=== PATIENT | male | born 1985 | race Caucasian/White ===

== ENCOUNTER 2020-06-15 12:52 | Emergency (ER) | payer OTHER, SELFPAY ==
[2020-06-15 12:58] VITALS: BP 158/107; PULSE 78; RESP 16; TEMP 36.3; O2SAT 100; BMI 27.1
--- NOTE | 2020-06-15 13:13 | XRR_ITS ---
PROCEDURE INFORMATION: Exam: XR Chest, 1 View Exam date and time: 06/15/2020 1:42 PM Age: 34 years old Clinical indication: Patient HX: C/O shortness of breath and chest pain today; Additional info: Cp TECHNIQUE: Imaging protocol: XR of the chest Views: 1 view. COMPARISON: CR Chest 1 view [id number] 08/16/2015 6:41 AM FINDINGS: Lungs: Unremarkable. No consolidation. Pleural space: Unremarkable. No pleural effusion. No pneumothorax. Heart/Mediastinum: Unremarkable. No cardiomegaly. Bones/joints: Unremarkable. XR/XR chest 1V portable [id number] IMPRESSION: No acute findings.
--- NOTE | 2020-06-15 13:15 | ECG_ITS ---
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 Measurements Intervals [place] Rate: 66 P: 60 UT: 205 QRS: 87 QRSD: 105 T: 52 QT: 386 QTc: 405 Interpretive Statements SINUS RHYTHM INTERPRETATION BASED ON A DEFAULT AGE OF 40 YEARS Compared to ECG 08/16/2015 12:16:11 Sinus bradycardia no longer present Electronically Signed On 06-16-2020 15:59:53 CDT by Jad Mcelroy M.D. [id number]
[2020-06-15] MEDS: aspirin 325 mg Tablet PO (13:32)
[2020-06-15] MEDS: ondansetron 2 mg/ML SDV 2 mL 4 MG IVP (13:32)
[2020-06-15] MEDS: sodium chloride 0.9% 1,000 ML 100 ML IV (13:33)
[2020-06-15 13:38] LABS: Basophils % 0.5 %; Eosinophils # 0.2 10^3/uL (0.0-0.8); Eosinophils % 3.5 %; Hematocrit 43.4 % (42.0-52.0); Lymphocytes # 2.6 10^3/uL (0.8-4.8); Lymphocytes % 41.1 %; Mean Corpuscular HGB Conc 34.6 g/dL (30.0-36.0); Mean Corpuscular Hemoglobin 31.7 pg (28.0-34.0); Mean Corpuscular Volume 91.8 fL (80-94); Mean Platelet Volume 11.9 fL (7.4-10.4); Monocytes # 0.6 10^3/uL (0.2-0.9); Neutrophils # 2.84 10^3/uL (1.8-7.7); Neutrophils % 45.7 %; Nucleated Red Blood Cells % 0 %; Platelet Count 211 10^3/cmm (130-400); Red Blood Count 4.73 10^6/uL (4.1-5.3); Red Cell Distribution Width 12.7 % (12.1-15.1); White Blood Count 6.2 10^3/uL (4.0-10.0)
[2020-06-15] MEDS: nitroglycerin 0.4 mg sublingual Tablet SUBLINGUAL ×3 (13:41→13:51)
[2020-06-15 13:45] VITALS: BP 130/84; PULSE 70; RESP 12; O2SAT 97
--- NOTE | 2020-06-15 13:52 | PC.NURSE ---
AFTER ADM 3 NITRO PT REPORTS THAT HIS PAIN DECREASED FROM A 6 TO A 0.
[2020-06-15 13:53] LABS: INR 0.86 (0.8-1.2)
[2020-06-15 13:58] LABS: Troponin(5th) Baseline 6 ng/L (0-15)
[2020-06-15 14:08] LABS: Alanine Aminotransferase 26 U/L (0-41); Albumin Level 4.7 g/dL (3.5-5.2); Alkaline Phosphatase 51 IU/L (40-130); Aspartate Amino Transferase 26 U/L (0-40); Blood Urea Nitrogen 13 mg/dL (6-20); Calcium 9.7 mg/dL (8.5-10.5); Carbon Dioxide 20 mmol/L (22-29); Chloride 108 mmol/L (98-107); Globulin 2.3 g/dL (1.3-4.6); Glomerular Filtration Rate 109.4 mL/min (90-130); Glucose 96 mg/dL (65-115); Lipase 25 U/L (13-60); NT Pro B Type Natriuretic Pept 58 pg/mL (0-125); Osmolality Calculated 288 mOsm/kg (285-295); Sodium 141 mmol/L (136-145); Total Bilirubin 0.4 mg/dL (0.15-1.2)
[2020-06-15] MEDS: nitroglycerin 1 gm/inch oint Pkt 1 INCH TOPICAL (14:09)
[2020-06-15 14:11] LABS: Anion Gap 16.9 (5-19); Potassium 3.9 mmol/L (3.5-5.1)
--- NOTE | 2020-06-15 14:22 | W.ED.CHESTPA ---
HPI - Chest Pain General: Chief Complaint: Chest Pain Stated Complaint: CP Time Seen by Provider: 06/15/20 13:12 Source: patient Mode of arrival: ambulatory Limitations: no limitations History of Present Illness: HPI narrative: Jakob is a nice 34-year-old male who comes in complaining of chest pain. He describes the pain as initially in his right arm that spread to his chest and then down his left arm. He describes it as a pressure sensation that also radiated up into his neck. He had shortness of breath and diaphoresis associated with this. He had nausea but no vomiting. The pain is been going on for about an hour and a half. Patient is concerned because he has a family history of early onset heart disease. He states he had a heart cath in 2015 that showed cardiac disease but nothing amenable to stenting. The patient states that his symptoms gets worse when he exerts himself but otherwise he denies any other complaints or concerns. Patient states he was working at the time of onset with with mild physical activity. Associated symptoms: Reports diaphoresis, dyspnea and nausea; Deny abdominal pain, fever(s), palpitations, syncope or vomiting Review of Systems Const: Reports: diaphoresis; Denies: fever(s), chills, body aches, fatigue or malaise Eyes: Denies: change in vision, blurry vision, blind spots, photophobia, eye discharge or eye redness ENMT: Denies: throat pain, odynophagia, hoarseness, swelling of lips/tongue, oral sores, ear or mastoid pain, ear discharge, change in hearing or nasal discharge Card: Reports: chest pain; Denies: palpitations, irregular heart rhythm, edema, lightheadedness, syncope, pre-syncope, dyspnea on exertion or orthopnea Resp: Reports: dyspnea; Denies: productive cough, non-productive cough, wheezing, hemoptysis or chest congestion GI: Reports: nausea; Denies: abdominal pain, vomiting, hematemesis, coffee ground emesis, heartburn, diarrhea, constipation, GI cramping, hematochezia or melena : Denies: flank pain, dysuria, urinary frequency, urinary urgency or hematuria Musc: Denies: neck pain, back pain, extremity pain, extremity swelling, joint pain, joint swelling, joint redness, joint warmth or joint stiffness Skin/Breast: Denies: rash, pruritus, erythema, skin tenderness or jaundice Neuro: Denies: headache(s), numbness in extremities, weakness in extremities, sensory changes, lack of coordination, difficulty walking, dizziness, vertigo, confusion, Slurred speech present or seizure-like activity Danyel/Lymph: Denies: easy bruising, easy bleeding, petechiae, purpura or enlarged lymph nodes All/Imm: Denies: urticaria, throat swelling, tongue swelling, facial swelling or acute wheezing PFSH ED PFSH: Medical History Hyperlipidemia Surgical History H/O cardiac catheterization Family History Other CAD (coronary artery disease) Family history of premature coronary artery disease Hyperlipidemia Hypertension Physical Exam Const: COMMON NORMALS: no acute distress, patient oriented x3, no limitations, healthy appearing and well nourished GENERAL APPEARANCE: cooperative, well kempt and well developed HENMT: COMMON NORMALS: normocephalic, atraumatic, external ears normal, EAC's normal and Normal external nose present HEAD & SCALP: normal to inspection, normocephalic and atraumatic FACE & SINUS: normal facial exam and face symmetric NOSE: Normal external nose present and Normal nares present EXTERNAL EAR: Yes external ears normal EXTERNAL AUDITORY CANAL: EAC's normal MOUTH: Normal oral and palatal mucosa present, lip normal and tongue normal Eye: COMMON NORMALS: Equal, round and reactive pupils present and conjunctivae normal GENERAL EYE: appearance normal, both eyes and all related structures ALIGNMENT: Yes alignment normal PERIORBITAL: periorbital findings normal EYELID: eyelids normal CONJUNCTIVA: Yes conjunctivae normal SCLERA: sclerae normal PUPIL: Yes Equal, round and reactive pupils present Neck/C-Spine: COMMON NORMALS: full ROM, no lymphadenopathy, supple, no meningeal signs and no JVD GENERAL: Yes normal visual inspection and Yes trachea midline Chest: COMMONS NORMALS: normal inspection of the chest and normal palpation of entire chest wall Resp: COMMON NORMALS: normal respiratory effort, No retractions and No use of accessory muscles EFFORT & INSPECTION: Yes able to speak in complete sentences and Yes symmetric chest movement AUSCULTATION: no crackles, no rales, no rhonchi and no wheezes Cardio: COMMON NORMALS: no JVD, regular rate, regular rhythm, S1 normal heart sound present and S2 normal heart sound present RATE: regular rate RHYTHM: regular rhythm HEART SOUNDS: S1 normal heart sound present, S2 normal heart sound present, no click, no gallops, no murmurs, no rubs and abnormal split S2 GI: COMMON NORMALS: Soft to palpation and No hepatosplenomegaly present PALPATION: Yes Soft to palpation, No Tenderness to palpation present (GI), No Guarding due to palpation present (GI), No Rigid due to palpation, Yes No hepatosplenomegaly present, No Hernia present, No Palpable mass present and No Pulsatile mass present : COMMON NORMALS: Yes no CVA tenderness BLADDER/KIDNEY EXAM: Yes no CVA tenderness Back/Pelvis: COMMON NORMALS: no CVA tenderness, thoracic and lumbar spine normal to inspection, no thoracic nor lumbar tenderness and thoraco-lumbar ROM normal Extremity: COMMON NORMALS: normal to inspection, full ROM, capillary refill normal, no joint enlargement, no clubbing, cyanosis or edema and no calf tenderness Neuro: COMMON NORMALS: patient oriented x3, CN's II-XII intact bilaterally, moves all extremities, no focal motor deficits and no sensory deficits noted MENINGEAL SIGNS: Yes no meningeal signs SPEECH: speech normal Psych: COMMON NORMALS: mental status grossly normal, Normal thought process present, cooperative, normal affect, speech normal and activity/motor behavior normal APPEARANCE: Yes well kempt SPEECH: Yes normal speech THOUGHT PROCESS: Normal thought process present Skin: COMMON NORMALS: no rashes or lesions noted, turgor normal, no jaundice, no petechiae and no mottling GENERAL SKIN EXAM: no rashes or lesions noted and turgor normal Course ED course: 1530 - Pt.'s HEART Score - 3 Vital Signs: Vital signs: Vital Signs Temperature 97.3 F L 06/15/20 12:58 Pulse Rate 74 06/15/20 15:30 Respiratory Rate 14 06/15/20 15:30 Blood Pressure 122/74 06/15/20 15:30 Pulse Oximetry 94 06/15/20 15:30 MDM - Chest Pain MDM Narrative: Medical decision making narrative: The case is reviewed in full with Dr. Feliciano, he agrees that the patient likely does not have progressive coronary disease. He states the likelihood is very small that he is developed significant coronary lesions in 5 years. The patient had a heart cath 5 years ago and it showed at the greatest a 10% lesion of the circumflex. His chest pain is resolved and he is PERC rule negative. He declines to stay for stress testing. Dr. Marte is agreed to see the patient in his clinic in follow-up. Patient understands he needs to return if his symptoms return but at this time he is feeling good and would like to go home. He declines any further evaluation and care and agrees to continue his medications. He will start the amlodipine as prescribed by Dr. Marte. Lab Data: Attestation: I reviewed the patient's lab results. Labs: Lab Results 06/15/20 06/15/20 06/15/20 Range/Units 13:25 13:25 13:25 WBC 6.2 (4.0-10.0) 10^3/ uL RBC 4.73 (4.1-5.3) 10^6/u L Hgb 15.0 (11.7-16.6) g/dL Hct 43.4 (42.0-52.0) % MCV 91.8 (80-94) fL MCH 31.7 (28.0-34.0) pg MCHC 34.6 (30.0-36.0) g/dL RDW 12.7 (12.1-15.1) % Plt Count 211 (130-400) 10^3/c mm MPV 11.9 H (7.4-10.4) fL Neut % (Auto) 45.7 % Lymph % (Auto) 41.1 % Buchanan % (Auto) 9.0 % Eos % (Auto) 3.5 % Baso % (Auto) 0.5 % Neut # (Auto) 2.84 (1.8-7.7) 10^3/u L Lymph # (Auto) 2.6 (0.8-4.8) 10^3/u L Buchanan # (Auto) 0.6 (0.2-0.9) 10^3/u L Eos # (Auto) 0.2 (0.0-0.8) 10^3/u L Baso # (Auto) 0.0 (0.0-0.1) 10^3/u L Nucleated RBC % (a uto) 0 % Nucleated RBCs # 0.0 /100WBC PT 11.90 (10.5-13.3) SECO NDS INR 0.86 (0.8-1.2) Sodium 141 (136-145) mmol/L Potassium 3.9 (3.5-5.1) mmol/L Chloride 108 H (98-107) mmol/L Carbon Dioxide 20 L (22-29) mmol/L Anion Gap 16.9 (5-19) BUN 13 (6-20) mg/dL Creatinine 0.8 (0.7-1.2) mg/dL GFR Calculation 109.4 (90-130) mL/min Glucose 96 (65-115) mg/dL Calculated Osmolal ity 288 (285-295) mOsm/k g Calcium 9.7 (8.5-10.5) mg/dL Magnesium 2.0 (1.7-2.3) mg/dL Total Bilirubin 0.4 (0.15-1.2) mg/dL AST 26 (0-40) U/L ALT 26 (0-41) U/L Alkaline Phosphata se 51 (40-130) IU/L Troponin T Baselin e (0-15) ng/L Troponin T 120 Min ghassan (0-15) ng/L Delta Troponin T (0-10) ABS# NT-Pro-B Natriuret Pep 58 (0-125) pg/mL Total Protein 7.0 (6.6-8.7) g/dL Albumin 4.7 (3.5-5.2) g/dL Globulin 2.3 (1.3-4.6) g/dL Lipase 25 (13-60) U/L Urine Color (Yellow) Urine Appearance (CLEAR) Urine pH (5-7) Ur Specific Gravit y (1.005-1.030) Urine Protein (Negative) Urine Glucose (UA) (Normal) Urine Ketones (Negative) Urine Blood (Negative) Urine Nitrate (Negative) Urine Bilirubin (NEGATIVE) Urine Urobilinogen (Negative) mg/dL Ur Leukocyte Jeannette ase (Negative) Urine RBC (0-2) /hpf Urine WBC (0-5) /hpf Ur Squamous Epith Cells (0-5) Amorphous Sediment Urine Bacteria (NONE) 06/15/20 06/15/20 06/15/20 Range/Units 13:25 14:03 15:38 WBC (4.0-10.0) 10^3/ uL RBC (4.1-5.3) 10^6/u L Hgb (11.7-16.6) g/dL Hct (42.0-52.0) % MCV (80-94) fL MCH (28.0-34.0) pg MCHC (30.0-36.0) g/dL RDW (12.1-15.1) % Plt Count (130-400) 10^3/c mm MPV (7.4-10.4) fL Neut % (Auto) % Lymph % (Auto) % Buchanan % (Auto) % Eos % (Auto) % Baso % (Auto) % Neut # (Auto) (1.8-7.7) 10^3/u L Lymph # (Auto) (0.8-4.8) 10^3/u L Buchanan # (Auto) (0.2-0.9) 10^3/u L Eos # (Auto) (0.0-0.8) 10^3/u L Baso # (Auto) (0.0-0.1) 10^3/u L Nucleated RBC % (a uto) % Nucleated RBCs # /100WBC PT (10.5-13.3) SECO NDS INR (0.8-1.2) Sodium (136-145) mmol/L Potassium (3.5-5.1) mmol/L Chloride (98-107) mmol/L Carbon Dioxide (22-29) mmol/L Anion Gap (5-19) BUN (6-20) mg/dL Creatinine (0.7-1.2) mg/dL GFR Calculation (90-130) mL/min Glucose (65-115) mg/dL Calculated Osmolal ity (285-295) mOsm/k g Calcium (8.5-10.5) mg/dL Magnesium (1.7-2.3) mg/dL Total Bilirubin (0.15-1.2) mg/dL AST (0-40) U/L ALT (0-41) U/L Alkaline Phosphata se (40-130) IU/L Troponin T Baselin e 6 (0-15) ng/L Troponin T 120 Min ghassan 6.03 (0-15) ng/L Delta Troponin T 0.03 (0-10) ABS# NT-Pro-B Natriuret Pep (0-125) pg/mL Total Protein (6.6-8.7) g/dL Albumin (3.5-5.2) g/dL Globulin (1.3-4.6) g/dL Lipase (13-60) U/L Urine Color Yellow (Yellow) Urine Appearance Clear (CLEAR) Urine pH 6.5 (5-7) Ur Specific Gravit y 1.010 (1.005-1.030) Urine Protein Neg (Negative) Urine Glucose (UA) Norm (Normal) Urine Ketones Negative (Negative) Urine Blood Neg (Negative) Urine Nitrate Negative (Negative) Urine Bilirubin Neg (NEGATIVE) Urine Urobilinogen Neg (Negative) mg/dL Ur Leukocyte Jeannette ase Negative (Negative) Urine RBC None (0-2) /hpf Urine WBC None (0-5) /hpf Ur Squamous Epith Cells None (0-5) Amorphous Sediment Not Reportable Urine Bacteria None (NONE) Imaging Data^: CXR: My impression: No acute cardiopulmonary findings. EKG Data^: EKG 1: Attestation: I personally reviewed and interpreted this EKG as follows: EKG interpretation date: 06/15/20 EKG interpretation time: 13:07 Interpretation: Normal sinus rhythm at 66 beats a minute, normal axis, no acute ST or T wave changes. EKG 2: Attestation: I personally reviewed and interpreted this EKG as follows: EKG interpretation date: 06/15/20 EKG interpretation time: 15:24 Interpretation: Normal sinus rhythm at 68 beats a minute, no acute ST or T wave changes. Unremarkable EKG. Discharge Plan Discharge Patient Disposition: Home Clinical Impression: Chest pain Qualifiers: Chest pain type: unspecified Qualified Code(s): R07.9 - Chest pain, unspecified Condition: Stable Prescriptions: New amlodipine 2.5 mg tablet 2.5 mg PO DAILY Qty: 30 RF: 0 No Action atorvastatin 80 mg tablet 20 mg PO BEDTIME RF: 0 Discharge Orders: Discharge Order (Routine); Ordered 06/15/20 Ordered By: Jessica Reynolds Referrals: Liz Feliciano MD [Physician] - 1-3 days Janelle Buico FNP [Primary Care Provider] - 1-3 days Discharge Diet: Advance as tolerated Discharge Activity: Increase activity as tolerated Patient Instructions: Chest Pain (ED) Activity Restrictions/Additional Instructions: Please return to the ER immediately for any of the signs or symptoms listed on your discharge instruction sheets, worsening/changing of your symptoms, you are not getting better as quickly as expected, or for ANY other cause or concerns. You have declined to stay for further evaluation and care but if you change your mind you are free and encouraged to return at any time for recheck. Please return to the ER for any return of chest pain or for any other cause for concern. Be certain to follow-up with Dr. Marte as soon as possible for recheck. Coding Level of Care Code ED Openstack Developer for Chg Fwd Exam Comprehensive
[2020-06-15 14:29] LABS: Urine Appearance Clear (CLEAR); Urine Color Yellow (Yellow); pH Urine 6.5 (5-7)
[2020-06-15 14:30] VITALS: BP 129/94; PULSE 69; RESP 15; O2SAT 96
[2020-06-15 14:30] LABS: Add Urine Culture? No; Bilirubin Urine Neg (NEGATIVE); Blood Urine Neg (Negative); Glucose Urine UA Norm (Normal); Ketones Urine Negative (Negative); Leukocyte Esterase Urine Negative (Negative); Nitrate Urine Negative (Negative); Protein Urine Neg (Negative); Urobilinogen Urine Neg (Negative)
--- NOTE | 2020-06-15 15:15 | ECG_ITS ---
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 Measurements Intervals [place] Rate: 68 P: 66 VT: 184 QRS: 85 QRSD: 114 T: 42 QT: 411 QTc: 438 Interpretive Statements SINUS RHYTHM POSSIBLE LEFT ATRIAL ENLARGEMENT [-0.1mV P WAVE IN V1/V2] MODERATE INTRAVENTRICULAR CONDUCTION DELAY [110+ ms QRS DURATION] NONSPECIFIC T-WAVE ABNORMALITY Compared to ECG 06/15/2020 13:07:55 Intraventricular conduction delay now present T-wave abnormality now present Electronically Signed On 06-16-2020 16:14:07 CDT by Jad Mcelroy M.D. [id number]
--- NOTE | 2020-06-15 15:26 | PC.NURSE ---
EKG done at 1520 and shown to ER doctor
[2020-06-15 15:30] VITALS: BP 122/74; PULSE 74; RESP 14; O2SAT 94
[2020-06-15 16:02] LABS: Troponin 5 2HR 6.03 ng/L (0-15); Troponin 5 2HR Delta 0.03 ABS# (0-10)
[2020-06-15 17:54] VITALS: BP 120/71; PULSE 68; RESP 16; O2SAT 96
== END 2020-06-15 17:58 | disposition home or self-care (01) ==
PROVIDERS: Emergency Provider Emergency Medicine; PCP Nurse Practitioner Family
DX: R07.9 Chest pain, unspecified (principal); E78.5 Hyperlipidemia, unspecified
CPT/HCPCS: 12345; 36415; 71045; 80053; 81001; 83690; 83735; 83880; 84484; 85025; 85610; 93005; 96360; 96361; 96374; 96375; 99283; 99284; J2405; J7030

== ENCOUNTER → 2021-04-13 11:15 | Outpatient (BNVA) | payer OTHER, SELFPAY | PROVIDERS: PCP Nurse Practitioner Family; Visit Provider Nurse Practitioner Family | DX: Z71.6 Tobacco abuse counseling (principal); E78.5 Hyperlipidemia, unspecified; I25.10 Atherosclerotic heart disease of native coronary artery without angina pectoris; R03.0 Elevated blood-pressure reading, without diagnosis of hypertension | CPT/HCPCS: 80061 ==

== ENCOUNTER 2022-07-11 12:47 | Emergency (ER) | payer OTHER, SELFPAY ==
[2022-07-11 12:51] VITALS: BP 145/84; PULSE 74; RESP 16; TEMP 36.7; O2SAT 98; BMI 25.1
[2022-07-11 13:07] VITALS: BP 145/84; PULSE 74; RESP 16; TEMP 36.7; O2SAT 98
--- NOTE | 2022-07-11 13:15 | ED_ITS ---
HPI - Skin/Abscess/Foreign Bdy General: Chief complaint: Skin/Abscess/Foreign Body Stated complaint: Swollen under the arm Time Seen by Provider: 07/11/22 12:58 History of Present Illness: Patient is a 36-year-old male comes to the ED with a abscess in right axillary. Abscess started a couple days ago. Yesterday he went to [facility] and drainage was performed using a needle punch. He was discharged home on a prescription for Bactrim. Today he is having worsening swelling and pain. Associated symptoms: Deny chills, fever(s), nausea or vomiting Review of Systems Const: Denies: fever(s), chills or fatigue Eyes: Denies: change in vision or eye discomfort ENMT: Denies: throat pain, odynophagia, nasal discharge or nasal congestion Card: Denies: chest pain, palpitations, edema, swelling of feet/ankles, dyspnea on exertion or orthopnea Resp: Denies: dyspnea, productive cough or non-productive cough GI: Denies: abdominal pain, nausea, vomiting, diarrhea, constipation or hematochezia : Denies: flank pain, difficulty urinating, dysuria or hematuria Musc: Denies: neck pain, back pain or extremity swelling Skin/Breast: Reports: new lesions (Abscess or cyst in right axilla); Denies: rash Neuro: Denies: headache(s), numbness in extremities or weakness in extremities PFSH ED PFSH: Medical History Chest pain Coronary artery disease Last [facility] in 2014, 10% mid circumflex stenosis, no other significant lesions Hyperlipidemia Surgical History H/O cardiac catheterization Family History Other CAD (coronary artery disease) Family history of premature coronary artery disease Hyperlipidemia Hypertension Social History Smoking and tobacco status: current every day smoker Physical Exam Const: COMMON NORMALS: no acute distress, patient oriented x3 and alert HENMT: COMMON NORMALS: normocephalic HEAD & SCALP: normocephalic MOUTH: Normal oral and palatal mucosa present THROAT: posterior oropharynx normal and uvula midline Neck/C-Spine: COMMON NORMALS: supple GENERAL: Yes normal visual inspection Resp: COMMON NORMALS: normal respiratory effort, No retractions, No use of accessory muscles and clear to auscultation bilaterally AUSCULTATION: clear to auscultation bilaterally Cardio: COMMON NORMALS: regular rate, regular rhythm, S1 normal heart sound present, S2 normal heart sound present, No gallops present (Cardio), No clicks present (Cardio), No murmurs present (Cardio) and Peripheral pulses 2+ throughout RATE: regular rate RHYTHM: regular rhythm HEART SOUNDS: S1 normal heart sound present and S2 normal heart sound present PERIPHERAL PULSES: Peripheral pulses 2+ throughout GI: COMMON NORMALS: Normal to inspection, nondistended, normoactive bowel sounds present, Soft to palpation, non-tender and no masses PALPATION: Yes Soft to palpation : COMMON NORMALS: Yes no CVA tenderness BLADDER/KIDNEY EXAM: Yes no CVA tenderness Back/Pelvis: COMMON NORMALS: no CVA tenderness Extremity: COMMON NORMALS: normal to inspection NARRATIVE EXTREMITY EXAM: Right axillary-red tender nodule approximately 2 cm in size. Surrounding erythema and warmth noted. Neuro: COMMON NORMALS: patient oriented x3 SENSORIUM/ORIENTATION: Yes alert GAIT: Yes Normal gait present Skin: GENERAL SKIN EXAM: dry skin Procedures Abscess I/D Site: upper extremity (right axillary) Side (if applicable): right Sedation/analgesia: none Local Anesthetic: lidocaine 1% Amount of anesthesia used (mL): 3 Technique: incised with #11 blade Amount of fluid expressed (mL): 3 (cyst) Irrigation: Yes Packing used?: none Course Vital Signs: Vital signs: Vital Signs Temperature 98.0 F 07/11/22 13:07 Pulse Rate 74 07/11/22 13:07 Respiratory Rate 16 07/11/22 13:07 Blood Pressure 145/84 07/11/22 13:07 Pulse Oximetry 98 07/11/22 13:07 MDM - Skin/Abscess/Foreign Bdy Medicial Decision Making Patient is a 36-year-old comes to the ED with a erythemic, tender nodule that is approximately 2 cm in size in right axillary region. There is some surrounding erythema and warmth present. I&D was performed and the lidocaine 1% was used as local anesthetic. Sebaceous cyst was removed and I&D site was i rrigated extensively with normal saline. No packing used. Patient was just started on prescription of Bactrim and he was told to continue taking it. He was diagnosed with a infected cyst of skin and told to follow-up with PCP within the next couple days for reevaluation. Return to ED precautions given. Patient understood agree with plan. Discharge Plan Discharge Patient Disposition: Home Clinical Impression: Infected cyst of skin Condition: Stable Prescriptions: No Action pantoprazole 40 mg tablet,delayed release (DR/EC) 40 mg PO DAILY Qty: 90 3RF sulfamethoxazole-trimethoprim [Bactrim DS] 800-160 mg tablet 1 tab PO BID 7 Days Qty: 14 0RF atorvastatin 20 mg tablet 20 mg PO BEDTIME Qty: 90 1RF Discharge Orders: Discharge ED (Routine); Ordered 07/11/22 Ordered By: Wali Johnson Referrals: [facility] [Primary Care Provider] - Discharge Diet: Regular Discharge Activity: Increase activity as tolerated Patient Instructions: Dermal Cyst Excision (DC), Cyst (ED) Activity Restrictions/Additional Instructions: Follow-up with PCP within the next 2 to 3 days to have cyst reevaluated. Take medications as prescribed. Return to the ER or your medical provider if condition worsens. Please read and understand discharge instructions. Thank you for choosing [facility] for your healthcare needs today. Please realize this is an emergency room and that we are providing you with a medical screening exam and this may not be complete and all inclusive of all the testing and or work up that you may need to determine your ailment or severity of your illness. It is very important that you follow up as instructed or that you return to the Emergency Department should you have concerns or if your condition changes or worsens in any way. Coding Level of Care Code ED Equipment Maintenance Technician for Lis Feliz Exam Comprehensive
[2022-07-11] MEDS: HYDROcodone-acetaminophen 7.5-325 mg Tablet 1 TAB PO (13:41)
== END 2022-07-11 14:25 | disposition home or self-care (01) ==
PROVIDERS: Emergency Provider Physician Assistant; PCP Nurse Practitioner Family
DX: L02.411 Cutaneous abscess of right axilla (principal)
CPT/HCPCS: 10060; 87070; 87075; 87205; 99283

== ENCOUNTER 2024-06-23 16:55 | Emergency (ER) | payer OTHER, SELFPAY ==
--- NOTE | 2024-06-23 16:53 | ECG_ITS ---
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 Measurements Intervals [place] Rate: 61 P: 50 IN: 192 QRS: 68 QRSD: 109 T: 33 QT: 409 QTc: 414 Interpretive Statements SINUS RHYTHM Compared to ECG 06/15/2020 15:24:17 Intraventricular conduction delay no longer present T-wave abnormality no longer present Electronically Signed On 06-23-2024 17:54:13 CDT by Mayo Odonnell M.D. [id number] f
--- NOTE | 2024-06-23 16:59 | XRR_ITS ---
PROCEDURE INFORMATION: Exam: XR Chest Exam date and time: 06/23/2024 5:09 PM Age: 38 years old Clinical indication: Pain; Angina pectoris; Additional info: Cp TECHNIQUE: Imaging protocol: Radiologic exam of the chest. Views: 1 view. COMPARISON: CR XR chest 1V portable [id number] 06/15/2020 1:31 PM FINDINGS: Lungs: Unremarkable. No consolidation or mass. Pleural spaces: Unremarkable. No pleural effusion. No pneumothorax. Heart/Mediastinum: Unremarkable. No cardiomegaly. Bones/joints: Unremarkable. XR/XR chest 1V portable [id number] IMPRESSION: No acute findings.
[2024-06-23 17:01] VITALS: BP 162/109; PULSE 60; RESP 18; TEMP 36.7
[2024-06-23 17:27] LABS: Basophils % 0.6 %; Eosinophils # 0.3 10^3/uL (0.0-0.8); Eosinophils % 3.7 %; Hematocrit 45.1 % (37-53); Lymphocytes # 2.8 10^3/uL (0.8-4.8); Lymphocytes % 42.4 %; Mean Corpuscular HGB Conc 33.5 g/dL (30-55); Mean Corpuscular Hemoglobin 30.4 pg (27-33); Mean Corpuscular Volume 90.7 fl (82-101); Monocytes # 0.5 10^3/uL (0.2-0.9); Monocytes % 7.5 %; Neutrophils # 3.06 10^3/uL (1.8-7.7); Neutrophils % 45.8 %; Nucleated Red Blood Cells % 0 %; Platelet Count 250 10^3/cmm (157-399); Red Blood Count 4.97 10^6/uL (3.85-5.65); Red Cell Distribution Width 13.4 % (12.1-15.1); White Blood Count 6.68 10^3/uL (3.29-11.43)
[2024-06-23 17:49] LABS: Alanine Aminotransferase 18 U/L (0-41); Alkaline Phosphatase 52 U/L (40-130); Anion Gap 17.6 (5-19); Aspartate Amino Transferase 17 U/L (0-40); Blood Urea Nitrogen 13 mg/dL (6-20); Calcium 9.8 mg/dL (8.5-10.5); Carbon Dioxide 25 mmol/L (22-29); Chloride 103 mmol/L (98-107); Creatinine Clr Calc Pharmacy 140.4917; Globulin 2.3 g/dL (1.3-4.6); Glomerular Filtration Rate 107.1 mL/min (90-130); Glucose 97 mg/dL (65-115); Lipase 32 U/L (13-60); Osmolality Calculated 292 mOsm/kg (285-295); Potassium 4.6 mmol/L (3.5-5.1); Sodium 141 mmol/L (136-145); Total Bilirubin 0.2 mg/dL (0.15-1.2); Total Protein 7.3 g/dL (6.6-8.7)
[2024-06-23 17:50] LABS: Troponin(5th) Baseline < 6 ng/L (0-15)
--- NOTE | 2024-06-23 18:36 | ED_ITS ---
HPI - Chest Pain 2 General: Chief Complaint: Chest Pain Stated Complaint: SOB, chest pain Time Seen by Provider: 06/23/24 18:16 Source: patient Mode of arrival: ambulatory Limitations: no limitations History of Present Illness: 38-year-old male states been having some chest pains throughout the day. He states been a pressure type pain with some mild dyspnea as well he states had pains like this in the past he had a cardiac cath back in 2014 that was negative but states he has not seen anyone since then. He denies any cough denies any fever states he had some GI upset last night. Associated symptoms: Reports dyspnea; Deny abdominal pain, fever(s), nausea or vomiting Review of Systems 2 Const: Denies: fever(s), chills, body aches or change in appetite ENMT: Denies: throat pain or dental pain Card: Reports: chest pain Resp: Reports: dyspnea GI: Denies: abdominal pain, nausea, vomiting or diarrhea Musc: Denies: neck pain or back pain Skin/Breast: Denies: rash Neuro: Denies: headache(s) PFSH ED 2 PFSH: Medical History Coronary artery disease Last [facility] in 2014, 10% mid circumflex stenosis, no other significant lesions Chest pain Hyperlipidemia Surgical History H/O cardiac catheterization Family History Other CAD (coronary artery disease) Family history of premature coronary artery disease Hyperlipidemia Hypertension Social History Smoking and tobacco/nicotine status: current every day tobacco/nicotine user Physical Exam 2 Const: COMMON NORMALS: no acute distress, patient oriented x3 and healthy appearing HENMT: COMMON NORMALS: normocephalic and atraumatic HEAD & SCALP: n ormocephalic and atraumatic Neck/C-Spine: COMMON NORMALS: full ROM and supple Chest: COMMONS NORMALS: normal inspection of the chest Resp: COMMON NORMALS: normal respiratory effort, No retractions, No use of accessory muscles and clear to auscultation bilaterally AUSCULTATION: clear to auscultation bilaterally Cardio: COMMON NORMALS: regular rate, regular rhythm and No murmurs present (Cardio) RATE: regular rate RHYTHM: regular rhythm Extremity: COMMON NORMALS: normal to inspection and full ROM Neuro: COMMON NORMALS: patient oriented x3, moves all extremities and no focal motor deficits Psych: COMMON NORMALS: mental status grossly normal, Normal thought process present and cooperative THOUGHT PROCESS: Normal thought process present Skin: COMMON NORMALS: no rashes or lesions noted and no wounds GENERAL SKIN EXAM: no rashes or lesions noted Course 2 Vital Signs: Vital signs: Vital Signs Temperature 98.0 F 06/23/24 17:01 Pulse Rate 59 L 06/23/24 19:26 Respiratory Rate 12 06/23/24 19:26 Blood Pressure 152/97 06/23/24 19:26 Pulse Oximetry 100 06/23/24 19:26 Oxygen Delivery Me thod Room Air 06/23/24 18:40 MDM - Chest Pain Medical Decision Making Patient presents here with chest pains atypical in nature his troponins and D- dimer here are negative he has no signs of dissection ACS or pulmonary embolism patient is well-appearing here he is stable for discharge is follow-up with PCP and return if worsening. Medical Records I reviewed the patient's medical records. Lab Data I reviewed the patient's lab results. 06/23/24 17:22 06/23/24 17:22 Radiology Impressions Chest X-Ray 06/23/24 16:59 IMPRESSION: No acute findings. Laboratory Results WBC 6.68 10^3/uL (3.29-11.43) 06/23/24 17:22 RBC 4.97 10^6/uL (3.85-5.65) 06/23/24 17:22 Hgb 15.10 g/dL (11.27-16.99) 06/23/24 17:22 Hct 45.1 % (37-53) 06/23/24 17:22 MCV 90.7 fl (82-101) 06/23/24 17:22 MCH 30.4 pg (27-33) 06/23/24 17:22 MCHC 33.5 g/dL (30-55) 06/23/24 17:22 RDW 13.4 % (12.1-15.1) 06/23/24 17:22 Plt Count 250 10^3/cmm (157-399) 06/23/24 17:22 MPV 11.0 fL (7.4-10.4) H 06/23/24 17:22 Neut % (Auto) 45.8 % 06/23/24 17:22 Lymph % (Auto) 42.4 % 06/23/24 17:22 Campbell % (Auto) 7.5 % 06/23/24 17:22 Eos % (Auto) 3.7 % 06/23/24 17:22 Baso % (Auto) 0.6 % 06/23/24 17:22 Neut # (Auto) 3.06 10^3/uL (1.8-7.7) 06/23/24 17:22 Lymph # (Auto) 2.8 10^3/uL (0.8-4.8) 06/23/24 17:22 Campbell # (Auto) 0.5 10^3/uL (0.2-0.9) 06/23/24 17:22 Eos # (Auto) 0.3 10^3/uL (0.0-0.8) 06/23/24 17:22 Baso # (Auto) 0.0 10^3/uL (0.0-0.1) 06/23/24 17:22 Nucleated RBC % (auto) 0 % 06/23/24 17:22 Nucleated RBCs # 0.0 /100WBC 06/23/24 17:22 D-Dimer <= 0.27 ug/mLFEU (0-0.59) 06/23/24 17:22 Sodium 141 mmol/L (136-145) 06/23/24 17:22 Potassium 4.6 mmol/L (3.5-5.1) 06/23/24 17:22 Chloride 103 mmol/L (98-107) 06/23/24 17:22 Carbon Dioxide 25 mmol/L (22-29) 06/23/24 17:22 Anion Gap 17.6 (5-19) 06/23/24 17:22 BUN 13 mg/dL (6-20) 06/23/24 17:22 Creatinine 0.8 mg/dL (0.7-1.2) 06/23/24 17:22 GFR Calculation 107.1 mL/min (90-130) 06/23/24 17:22 Glucose 97 mg/dL (65-115) 06/23/24 17:22 Calculated Osmolality 292 mOsm/kg (285-295) 06/23/24 17:22 Calcium 9.8 mg/dL (8.5-10.5) 06/23/24 17:22 Total Bilirubin 0.2 mg/dL (0.15-1.2) 06/23/24 17:22 AST 17 U/L (0-40) 06/23/24 17:22 ALT 18 U/L (0-41) 06/23/24 17:22 Alkaline Phosphatase 52 U/L (40-130) 06/23/24 17:22 Troponin T Baseline < 6 ng/L (0-15) 06/23/24 17:22 Troponin T 120 Minute 6.00 ng/L (0-15) 06/23/24 19:09 Delta Troponin T 0.92680 ABS# (0-10) 06/23/24 19:09 Total Protein 7.3 g/dL (6.6-8.7) 06/23/24 17:22 Albumin 5.0 g/dL (3.5-5.2) 06/23/24 17:22 Globulin 2.3 g/dL (1.3-4.6) 06/23/24 17:22 Lipase 32 U/L (13-60) 06/23/24 17:22 All radiology interpretation(s) finalized by discharge EKG Data EKG 1: I personally reviewed and interpreted this EKG as follows: EKG interpretation date: 06/23/24 EKG interpretation time: 19:00 Interpretation: sinus quentin hr [address] or t wave abnormalities qrs 109 qtc 418 Discharge Plan Discharge Patient Disposition: Home Clinical Impression: Chest pain Condition: Stable Discharge Orders: Discharge ED (Routine); Ordered 06/23/24 Ordered By: Rose Mary Queen Referrals: Gertrudis Pacheco MD [Primary Care Provider] - Discharge Diet: Advance as tolerated Discharge Activity: Resume usual activity Patient Instructions: Chest Pain (ED) Coding Level of Care Code ED Coal Handler for Lis Feliz
[2024-06-23 18:40] VITALS: BP 138/84; PULSE 60; O2SAT 97
[2024-06-23 19:08] LABS: D Dimer <= 0.27 ug/mLFEU (0-0.59)
[2024-06-23 19:26] VITALS: BP 152/97; PULSE 59; RESP 12; O2SAT 100
[2024-06-23 19:39] LABS: Troponin 5 2HR Delta 0.00001 ABS# (0-10)
--- NOTE | 2024-06-23 22:59 | ECG_ITS ---
[facility] Test Date: 2024-06-23 Pat Name: Jakob Mireles Department: Room: Gender: Male Section Hand: : 1985 Requested By: Rose Mary Queen Order Number: [id number] Ashford MD: Mayo Odonnell M.D. Measurements Intervals [place] Rate: 55 P: 56 NH: 210 QRS: 71 QRSD: 109 T: 41 QT: 430 QTc: 411 Interpretive Statements SINUS BRADYCARDIA WITH FIRST DEGREE AV BLOCK Compared to ECG 06/23/2024 16:53:40 First degree AV block now present Sinus rhythm no longer present Electronically Signed On 06-24-2024 10:00:37 CDT by Mayo Odonnell M.D. [id number]
== END 2024-06-23 20:00 | disposition home or self-care (01) ==
PROVIDERS: Emergency Provider Emergency Medicine; PCP Family Medicine
DX: R07.9 Chest pain, unspecified (principal); Z72.0 Tobacco use; I25.10 Atherosclerotic heart disease of native coronary artery without angina pectoris; E78.5 Hyperlipidemia, unspecified
CPT/HCPCS: 36415; 71045; 80053; 83690; 84484; 85025; 85378; 93005; 99285

== ENCOUNTER 2024-07-06 06:00 | Outpatient (CLI) | payer OTHER, SELFPAY | END 2024-07-06 06:01 | disposition home or self-care (01) | LOC: CDL 07-23 06:49 | PROVIDERS: PCP Family Medicine; Visit Provider Family Medicine | DX: Z87.898 Personal history of other specified conditions (principal) | CPT/HCPCS: 80061; 86803; 87806 ==

== ENCOUNTER 2024-09-08 08:11 | Outpatient (CLI) | payer OTHER, SELFPAY ==
[2024-09-08 08:14] VITALS: BMI 26.9
--- NOTE | 2024-09-08 08:15 | ECG_ITS ---
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 Interpretive Statements Lung unchanged pre/post procedure; Intraprocedure shortess of breath; Symptoms resoled by discharge Electronically Signed On 09-12-2024 21:46:21 CDT by Madyson Delcid M.D. [id number]
--- NOTE | 2024-09-08 08:15 | NMCV_ITS ---
NM mario perf SPECT r/s* [id number] Jakob Mireles Age: 38 Gender: M : 1985 Exam Date: 09/08/2024 08:15 Ordering Phys: Gertrudis Pacheco MD Technologist: JOYCELYN Salas Exam Location: [facility] Indications: CP STRESS TEST Please see separate stress test report in [facility] for full findings IMAGE PROTOCOL Rest/Stress 1 Exercise Day Radiopharmaceutical Dose (mCi) Administration Site Administered by Rest: Tc-99m 9.2 IV JOYCELYN Velazquez Sestamibi Stress:Tc-99m 28.9 IV JOYCELYN Velazquez Sestamibi Rest: 08-Sep-2024 60 Discovery 630 Stress: 08-Sep-2024 30 Discovery 630 Radiopharmaceutical was injected at 85 % maximum heart rate. Images obtained in supine and prone position. SPECT RESULTS Technical Quality: Good Raw Data Analysis: Normal Image Corrections: No attenuation or motion correction applied Summed Stress Score: 0 Summed Rest Score: 3 Summed Difference Score: 0 PERFUSION FINDINGS Fairly uniform myocardial tracer uptake with no significant Perfusion abnormalities FUNCTIONAL RESULTS (calculated via Gated SPECT) Stress Image LV EF (%): 73 Stress EDV (mL):82 TID: 0.81 Stress ESV (mL):22 FUNCTIONAL FINDINGS: Segmental wall motion analysis revealing no gross wall motion abnormalities IMPRESSIONS 1. Myocardial perfusion imaging revealing fairly uniform myocardial tracer uptake with no significant Perfusion abnormalities 2. Normal LV ejection fraction of 73%. 3. LV wall motion analysis revealing no gross wall motion abnormalities. 4. Normal LV volume Low probability for coronary ischemia, based on the above findings Dr Madyson Delcid MD FACC (Electronically Signed) Final Date: 08 September 2024 21:07 S
[2024-09-08 10:16] VITALS: BP 154/64; PULSE 73
== END 2024-09-08 08:12 | disposition home or self-care (01) ==
PROVIDERS: PCP Family Medicine; Visit Provider Family Medicine
DX: I25.10 Atherosclerotic heart disease of native coronary artery without angina pectoris (principal); R07.89 Other chest pain; R06.02 Shortness of breath
CPT/HCPCS: 36415; 78452; 93017; A9500

== ENCOUNTER 2024-11-09 09:34 | Emergency (ER) | payer OTHER, SELFPAY ==
[2024-11-09 09:37] VITALS: BP 131/81; PULSE 72; RESP 16; TEMP 36.7; O2SAT 99; BMI 27.8
--- NOTE | 2024-11-09 09:47 | W.ED.DENTAL ---
HPI - Dental/Oral General: Chief complaint: Dental/Oral Stated complaint: med not working, more swollen and pain jaw to ear Time Seen by Provider: 11/09/24 09:39 Source: patient Mode of arrival: ambulatory Limitations: no limitations History of Present Illness: Patient is a 38-year-old male presents to ED today with a complaint of pain and swelling to the right side of his face and jaw. He states symptoms initially began last week. He began taking one of his children's leftover Augmentin. States he was not improving as he saw the walk-in clinic approximately a day and a half ago and was prescribed clindamycin. He was also given tramadol which is not helping with his pain. He does remember having dental pain prior to swelling starting. He does feel like swelling fluctuates. He feels like swelling has not overall improved and is now radiating to his right ear. He is continuing to eat and drink normally. He is not having any difficulty speaking, controlling secretions, or drooling. No fevers. Onset (ago): day(s) Duration: constant Severity: moderate Relieving factors: nothing Exacerbating factors: nothing Associated symptoms: Reports ear or mastoid pain; Denies fever(s) or odynophagia Treatment prior to arrival: oral analgesic Related Data Previous Rx's Medication Instructions Recorded buspirone 7.5 mg tablet 7.5 mg PO BID PRN anxiety #60 tabs 08/23/24 lisinopril 40 mg tablet 40 mg PO DAILY #90 tabs 08/23/24 clindamycin HCl 300 mg capsule 300 mg PO Q6H 7 days #28 caps 11/07/24 hydrocodone 5 mg-acetaminophen 325 1 tab PO Q6H PRN pain #14 tabs 11/09/24 mg tablet ondansetron 4 mg disintegrating 4 mg PO Q8H PRN nausea and 11/09/24 tablet vomiting #14 tabs Allergies Allergy/AdvReac Type Severity Reaction Status Date / Time No Known Allergies Allergy Verified 11/09/24 09:42 Review of Systems Const: Denies: fever(s), chills, body aches, fatigue or malaise ENMT: Reports: ear or mastoid pain and sinus pain; Denies: throat pain, uvular edema, enlarged tonsils, odynophagia, swelling of lips/tongue, oral sores, nasal discharge or nasal congestion Card: Denies: chest pain Resp: Denies: dyspnea GI: Denies: abdominal pain Musc: Denies: back pain, extremity pain, extremity swelling, joint pain or joint swelling Skin/Breast: Denies: rash PFSH ED PFSH: Medical History History of intravenous drug use Coronary artery disease Last [facility] in 2014, 10% mid circumflex stenosis, no other significant lesions Chest pain Hyperlipidemia Surgical History History of tonsillectomy H/O cardiac catheterization Family History Father , MD at age 27 CAD (coronary artery disease) Mother Lung cancer Other Family history of premature coronary artery disease Hyperlipidemia Hypertension Social History Smoking and tobacco/nicotine status: never used tobacco/nicotine Quit status (tobacco/nicotine): considering quitting Alcohol intake: current Alcohol intake frequency: few times a week Alcohol type: beer Substance/Drug Use: former Date of last use: 2008 Former substance use details: iv meth Lives independently: Yes Household members: spouse and children Marital status: Current occupational status: employed 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 mild edema; no fluctuance or drainable abscess EXTERNAL EAR: Yes external ears normal EXTERNAL AUDITORY CANAL: EAC's normal TYMPANIC MEMBRANE: TM's normal bilaterally MOUTH: Normal oral and palatal mucosa present, lip normal, tongue normal and other (floor of mouth is soft/non elevated); no audible dysphonia, no drooling and no muffled voice TEETH & GINGIVA: Yes fair dentition and Yes other (tender along R lower gumline with no fluctuance) THROAT: posterior oropharynx normal and tonsils normal; no uvular edema Eye: GENERAL EYE: appearance normal, both eyes and all related structures Neck/C-Spine: COMMON NORMALS: full ROM and no meningeal signs GENERAL: Yes lymphadenopathy and Yes submandibular swelling (very mild) Resp: COMMON NORMALS: normal respiratory effort and clear to auscultation bilaterally AUSCULTATION: clear to auscultation bilaterally Cardio: COMMON NORMALS: regular rate and regular rhythm RATE: regular rate RHYTHM: regular rhythm Neuro: COMMON NORMALS: patient oriented x3 SENSORIUM/ORIENTATION: Yes alert MENINGEAL SIGNS: Yes no meningeal signs Course Vital Signs: Vital signs: Vital Signs Temperature 98.1 F 11/09/24 09:37 Pulse Rate 72 11/09/24 09:37 Respiratory Rate 16 11/09/24 09:37 Blood Pressure 131/81 11/09/24 09:37 Pulse Oximetry 99 11/09/24 09:37 Oxygen Delivery Me thod Room Air 11/09/24 09:37 MDM - Dental/Oral Medical Decision Making At this time-favor dental related. Other etiologies include sialoadenitis/sialolithiasis, submandibular lymphadenopathy, mass/neoplasm. Clinically, I do not appreciate any fluctuance or drainable abscess. 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 He has been on Clindamycin approximately 36 hours of a 7-day course. Recommend he continue taking this as prescribed. He is requesting something else to help with discomfort. I would like him to follow-up with primary care later this week/early next week for reevaluation. Return to ED precautions given. Medical Records I reviewed the patient's medical records. No radiology studies performed this visit Discharge Plan Discharge Patient Disposition: Home Clinical Impression: Mandibular pain Condition: Stable Prescriptions: New hydrocodone-acetaminophen 5-325 mg tablet 1 tab PO Q6H PRN (Reason: pain) Qty: 14 0RF ondansetron 4 mg tablet,disintegrating 4 mg PO Q8H PRN (Reason: nausea and vomiting) Qty: 14 0RF Continued clindamycin HCl 300 mg capsule 300 mg PO Q6H 7 Days Qty: 28 0RF Discontinued tramadol 50 mg tablet 50 mg PO Q6H PRN (Reason: pain) Qty: 20 0RF No Action buspirone 7.5 mg tablet 7.5 mg PO BID PRN (Reason: anxiety) Qty: 60 0RF lisinopril 40 mg tablet 40 mg PO DAILY Qty: 90 0RF Discharge Orders: Discharge ED (Routine); Ordered 11/09/24 Ordered By: Margy Rodriguez Referrals: Gertrudis Pacheco MD [Primary Care Provider] - Patient Instructions: Opioid Safety, Pain Management Activity Restrictions/Additional Instructions: As we discussed, I would like you to follow-up with primary care towards the end of the week/early next week for reevaluation. You need to return to the emergency department for any worsening pain, swelling, difficulty chewing or swallowing, drooling or difficulty controlling secretions, or any other concerns you may have. Coding Level of Care Code ED Aspnet Developer for Lis Feliz
== END 2024-11-09 10:40 | disposition home or self-care (01) ==
PROVIDERS: Emergency Provider Physician Assistant; PCP Family Medicine
DX: R68.84 Jaw pain (principal); I25.10 Atherosclerotic heart disease of native coronary artery without angina pectoris; E78.5 Hyperlipidemia, unspecified
CPT/HCPCS: 99283